=== PATIENT | female | born 1965 ===

== ENCOUNTER 2018-06-22 18:36 | Outpatient (CLI) | payer MEDICARE, MEDICAID | END 2018-06-22 18:37 | disposition home or self-care (01) | LOC: C.SLEEP 18:37 ==

== ENCOUNTER 2018-07-27 18:51 | Outpatient (CLI) | payer MEDICARE, MEDICAID | END 2018-07-27 18:52 | disposition home or self-care (01) | LOC: C.SLEEP 18:52 ==